=== PATIENT | female | born 1940 | race Caucasian/White ===

== ENCOUNTER 2017-03-25 10:50 | Emergency (ER) | payer MEDICARE, OTHER ==
[~2017-03-25 10:50] MED LIST: ALLOPURINOL300 MG PO; ASPIR 8181 MG PO; ATENOLOL50 MG PO; CALCIUM WITH VI1 TAB PO; CIPRO XR500 MG PO; CIPRO500 MG PO; CLARITIN10 M2 PO; COUGH PO; FEMARA2.5 MG PO; HCT PO; LORATADINE PO; MELATONIN5 M5 PO; MOTRIN800 MG PO; OXYCODONE/APAP PO; PRAVACHOL40 MG PO; PRAVASTATIN PO; TRIAMTERENE PO; UNKNOWN ANTIBIOTIC PO; VITAMIN D PO; VITAMIN D-1000 UNIT/ PO; VITAMIN E400 UNIT PO
[2017-03-25] MEDS ORDERED: COZAAR100 M1 PO (11:57)
[2017-03-25] MEDS ORDERED: NORVASC5 M2 PO (11:58)
[2017-03-25] MEDS ORDERED: ATENOLOL50 M1 PO (11:58)
[2017-03-25] MEDS ORDERED: PRAVACHOL40 M1 PO (11:58)
[2017-03-25] MEDS ORDERED: LEXAPRO10 M2 PO (11:58)
[2017-03-25] MEDS ORDERED: BIOTIN5000 MCG PO (11:59)
[2017-03-25] MEDS ORDERED: ASPIRIN81 M1 PO (11:59)
[2017-03-25] MEDS ORDERED: VITAMIN D32000 UNI2 PO (12:00)
[2017-03-25] MEDS ORDERED: CYCLOBENZAPRINE5 M1 PO (12:04)
== END 2017-03-25 12:16 ==
LOC: EDMED 10:50
DX: S39.012A Strain of muscle, fascia and tendon of lower back, initial encounter (principal); W17.89XA Other fall from one level to another, initial encounter